=== PATIENT | male | born 1950 | race Caucasian/White ===

== ENCOUNTER → 2024-09-19 15:59 | Outpatient (REF) | payer MEDICARE, SELFPAY | LOC: HWRAD 15:59 | PROVIDERS: ATTENDING PHYSICIAN Podiatrist Foot & Ankle Surgery; FAMILY PHYSICIAN Internal Medicine | DX: L97.512 Non-pressure chronic ulcer of other part of right foot with fat layer exposed (principal); L97.522 Non-pressure chronic ulcer of other part of left foot with fat layer exposed | CPT/HCPCS: 73630 ==